=== PATIENT | male | born 1945 | race Caucasian/White ===

== ENCOUNTER 2018-08-10 10:13 | Inpatient (IN) | payer MEDICAID ==
[2018-08-10 11:13] LABS: ADD MAN DIFF? NO
[2018-08-10 11:14] LABS: WHITE BLOOD COUNT 5.9 10^3/ul (4.8-10.8)
[2018-08-10 11:14] LABS: BASOPHIL # 0.1 10^3/ul (0.0-0.1); BASOPHILS % 0.8 % (0.0-2.0); EOSINOPHILS # 0.6 10^3/ul (0.0-0.5); EOSINOPHILS % 9.8 % (0.0-7.0); HEMATOCRIT 34.5 % (42.0-52.0); HEMOGLOBIN 10.6 g/dl (14.0-18.0); LYMPHOCYTES # 1.5 10^3/ul (0.8-2.9); LYMPHOCYTES % 24.6 % (15.0-51.0); MEAN CORPUSCULAR HEMOGLOBIN 18.8 pg (29.0-33.0); MEAN CORPUSCULAR HGB CONC 30.7 g/dl (32.0-37.0); MEAN CORPUSCULAR VOLUME 61.2 fl (82.0-101.0); MEAN PLATELET VOLUME 10.3 fl (7.4-10.4); MONOCYTES % 17.5 % (0.0-11.0); NEUTROPHIL # 2.8 10^3/ul (1.6-7.5); NEUTROPHILS % 46.8 % (39.0-77.0); PLATELET COUNT 322 10^3/UL (140-415); RED BLOOD COUNT 5.64 10^6/ul (4.70-6.10); RED CELL DISTRIBUTION WIDTH 16.2 % (11.5-14.5)
[2018-08-10] MEDS: ONDANSETRON 4 MG INJ IV (11:18)
[2018-08-10] MEDS: PIPER-TAZO 3.375 GM IV (PMX) 100 ML IVPB ×3 (11:18→22:00)
[2018-08-10] MEDS: SODIUM CHLORIDE 0.9% 1L BAG IV* (11:18)
[2018-08-10] MEDS: morphine 4 MG/ML VIAL IV (11:24)
[2018-08-10 11:31] LABS: ALANINE AMINOTRANSFERASE 26 IU/L (13-69); ALBUMIN 3.7 g/dl (3.3-4.9); ALBUMIN/GLOBULIN RATIO 1.19; ALKALINE PHOSPHATASE 72 IU/L (42-121); ANION GAP 9 (5-13); ASPARTATE AMINO TRANSFERASE 31 IU/L (15-46); BILIRUBIN,INDIRECT 0.1 mg/dl (0-1.1); BILIRUBIN,TOTAL 0.1 mg/dl (0.2-1.3); BLOOD UREA NITROGEN 22 mg/dl (7-20); CALCIUM 8.3 mg/dl (8.4-10.2); CARBON DIOXIDE 24 mmol/L (21-31); CHLORIDE 105 mmol/L (97-110); CREATININE 1.94 mg/dl (0.61-1.24); GLUCOSE 92 mg/dl (70-220); LIPASE 124 U/L (23-300); POTASSIUM 3.9 mmol/L (3.5-5.1); SODIUM 138 mmol/L (135-144); TOTAL PROTEIN 6.8 g/dl (6.1-8.1)
[2018-08-10 11:34] LABS: PROTIME 13.3 Sec (11.9-14.9)
[2018-08-10 11:36] LABS: ADD UMIC YES; UR ASCORBIC ACID NEGATIVE (NEGATIVE); UR BILIRUBIN (Dip) NEGATIVE (NEGATIVE); UR BLOOD (Dip) NEGATIVE (NEGATIVE); UR CLARITY CLEAR (CLEAR); UR COLOR YELLOW (YELLOW); UR GLUCOSE (Dip) NEGATIVE (NEGATIVE); UR KETONES (Dip) NEGATIVE (NEGATIVE); UR LEUKOCYTE ESTERASE (Dip) NEGATIVE Leu/ul (NEGATIVE); UR NITRITE (Dip) NEGATIVE (NEGATIVE); UR RBC 0 /HPF (0-5); UR SPECIFIC GRAVITY (Dip) 1.012 (1.003-1.030); UR TOTAL PROTEIN (Dip) 2+ mg/dl (NEGATIVE); UR UROBILINOGEN (Dip) NEGATIVE (NEGATIVE); UR WBC 0 /HPF (0-5)
[2018-08-10 11:42] LABS: TROPONIN-I < 0.012 ng/ml (0.000-0.120)
[2018-08-10] MEDS: VANCOMYCIN 1 GM (PMX) 250 ML IVPB (12:22)
[2018-08-10] MEDS ORDERED: ACETAMINOPHEN 325 MG TAB PO ×2 (13:30→17:00)
[2018-08-10] MEDS ORDERED: ONDANSETRON 4 MG INJ IV ×3 (13:30→17:00)
[2018-08-10] MEDS ORDERED: NACL 0.9% 3 ML SYG IV ×2 (15:30→17:00)
[2018-08-10 15:54] LABS: HEMOGLOBIN A1C 5.8 % (0-5.9)
[2018-08-10 16:03] LABS: LACTIC ACID 1.1 mmol/L (0.5-2.0)
[2018-08-10 16:26] LABS: IRON 30 ug/dl (35-150)
[2018-08-10 16:35] LABS: % IRON SATURATION 11 % SAT (22-52); TOTAL IRON BINDING CAPACITY 267 ug/dl (241-421)
[2018-08-10] MEDS: LABETALOL 100 MG TAB PO (16:47)
[2018-08-10] MEDS: SOD CHLORIDE 0.9% 1,000 ML IV (16:51)
[2018-08-10] MEDS ORDERED: HYDROCODONE/APAP (5/325) TAB PO (17:00)
[2018-08-10 17:23] LABS: B-TYPE NATRIURETIC PEPTIDE 184 PG/ML (0-125)
[2018-08-10] MEDS: LIDOCAINE 1% (MPF) 30 ML INJ INJ (18:15)
[2018-08-10] MEDS: HEPARIN 5,000 UNIT/1 ML VIAL SC (21:57)
[2018-08-11] MEDS: SOD CHLORIDE 0.9% 1,000 ML IV ×2 (01:45→11:44)
[2018-08-11] MEDS: HEPARIN 5,000 UNIT/1 ML VIAL SC ×3 (05:21→21:48)
[2018-08-11] MEDS: PIPER-TAZO 3.375 GM IV (PMX) 100 ML IVPB ×3 (05:22→21:28)
[2018-08-11 05:56] LABS: ADD MAN DIFF? NO
[2018-08-11 06:02] LABS: BASOPHIL # 0.1 10^3/ul (0.0-0.1); BASOPHILS % 0.9 % (0.0-2.0); EOSINOPHILS # 0.6 10^3/ul (0.0-0.5); EOSINOPHILS % 10.1 % (0.0-7.0); HEMATOCRIT 30.1 % (42.0-52.0); HEMOGLOBIN 9.3 g/dl (14.0-18.0); LYMPHOCYTES # 1.3 10^3/ul (0.8-2.9); LYMPHOCYTES % 23.4 % (15.0-51.0); MEAN CORPUSCULAR HEMOGLOBIN 18.9 pg (29.0-33.0); MEAN CORPUSCULAR HGB CONC 30.9 g/dl (32.0-37.0); MEAN CORPUSCULAR VOLUME 61.3 fl (82.0-101.0); MONOCYTE # 0.5 10^3/ul (0.3-0.9); MONOCYTES % 9.1 % (0.0-11.0); NEUTROPHIL # 3.2 10^3/ul (1.6-7.5); PLATELET COUNT 304 10^3/UL (140-415); RED BLOOD COUNT 4.91 10^6/ul (4.70-6.10); RED CELL DISTRIBUTION WIDTH 16.6 % (11.5-14.5)
[2018-08-11 06:02] LABS: WHITE BLOOD COUNT 5.7 10^3/ul (4.8-10.8)
[2018-08-11 06:25] LABS: ALANINE AMINOTRANSFERASE 23 IU/L (13-69); ALBUMIN 2.9 g/dl (3.3-4.9); ALBUMIN/GLOBULIN RATIO 1.03; ALKALINE PHOSPHATASE 55 IU/L (42-121); ANION GAP 10 (5-13); ASPARTATE AMINO TRANSFERASE 25 IU/L (15-46); BILIRUBIN,INDIRECT 0.1 mg/dl (0-1.1); BILIRUBIN,TOTAL 0.1 mg/dl (0.2-1.3); BLOOD UREA NITROGEN 19 mg/dl (7-20); CALCIUM 7.4 mg/dl (8.4-10.2); CARBON DIOXIDE 22 mmol/L (21-31); CHLORIDE 110 mmol/L (97-110); CREATININE 1.83 mg/dl (0.61-1.24); GLUCOSE 88 mg/dl (70-220); MAGNESIUM 1.8 mg/dl (1.7-2.5); PHOSPHORUS 4.1 mg/dl (2.5-4.9); POTASSIUM 4.4 mmol/L (3.5-5.1); SODIUM 142 mmol/L (135-144); TOTAL PROTEIN 5.7 g/dl (6.1-8.1)
[2018-08-11 06:42] LABS: HEMOGLOBIN A1C 5.6 % (0-5.9)
[2018-08-11] MEDS ORDERED: ENOXAPARIN 40 MG/0.4 ML SYG SC (09:00)
[2018-08-11] MEDS: LABETALOL 100 MG TAB PO ×2 (11:41→20:05)
[2018-08-11] MEDS: AMLODIPINE 10 MG TAB PO (14:51)
[2018-08-11 17:57] LABS: CREATININE,URINE RANDOM 41.08 mg/dl (20-370)
[2018-08-11 17:57] LABS: SODIUM,URINE RANDOM 129 mmol/L (30-90)
[2018-08-12] MEDS: PIPER-TAZO 3.375 GM IV (PMX) 100 ML IVPB ×3 (05:06→21:50)
[2018-08-12] MEDS: HEPARIN 5,000 UNIT/1 ML VIAL SC ×2 (05:12→15:05)
[2018-08-12 05:26] LABS: ADD MAN DIFF? NO
[2018-08-12 05:30] LABS: BASOPHIL # 0.1 10^3/ul (0.0-0.1); BASOPHILS % 1.2 % (0.0-2.0); EOSINOPHILS # 0.7 10^3/ul (0.0-0.5); EOSINOPHILS % 12.1 % (0.0-7.0); HEMATOCRIT 29.7 % (42.0-52.0); HEMOGLOBIN 9.2 g/dl (14.0-18.0); LYMPHOCYTES # 1.4 10^3/ul (0.8-2.9); LYMPHOCYTES % 23.2 % (15.0-51.0); MEAN CORPUSCULAR HEMOGLOBIN 18.8 pg (29.0-33.0); MEAN CORPUSCULAR VOLUME 60.6 fl (82.0-101.0); MEAN PLATELET VOLUME 10.5 fl (7.4-10.4); MONOCYTE # 0.5 10^3/ul (0.3-0.9); MONOCYTES % 7.8 % (0.0-11.0); NEUTROPHIL # 3.4 10^3/ul (1.6-7.5); NEUTROPHILS % 55.4 % (39.0-77.0); PLATELET COUNT 309 10^3/UL (140-415); RED CELL DISTRIBUTION WIDTH 16.7 % (11.5-14.5)
[2018-08-12 05:55] LABS: ALANINE AMINOTRANSFERASE 26 IU/L (13-69); ALBUMIN/GLOBULIN RATIO 1.11; ALKALINE PHOSPHATASE 60 IU/L (42-121); ANION GAP 8 (5-13); ASPARTATE AMINO TRANSFERASE 26 IU/L (15-46); BILIRUBIN,INDIRECT 0.2 mg/dl (0-1.1); BILIRUBIN,TOTAL 0.2 mg/dl (0.2-1.3); BLOOD UREA NITROGEN 14 mg/dl (7-20); CALCIUM 7.8 mg/dl (8.4-10.2); CARBON DIOXIDE 22 mmol/L (21-31); CHLORIDE 111 mmol/L (97-110); CREATININE 1.83 mg/dl (0.61-1.24); GLUCOSE 88 mg/dl (70-220); POTASSIUM 4.2 mmol/L (3.5-5.1); SODIUM 141 mmol/L (135-144); TOTAL PROTEIN 5.7 g/dl (6.1-8.1)
[2018-08-12 05:56] LABS: MAGNESIUM 1.8 mg/dl (1.7-2.5)
[2018-08-12 05:56] LABS: PHOSPHORUS 3.9 mg/dl (2.5-4.9)
[2018-08-12] MEDS: AMLODIPINE 10 MG TAB PO (08:17)
[2018-08-12] MEDS: LABETALOL 100 MG TAB PO ×2 (08:18→20:15)
[2018-08-12] MEDS ORDERED: LOPERAMIDE 2 MG CAP PO (12:00)
[2018-08-12 15:31] LABS: CREATININE, RANDOM URINE 42 mg/dL (20-320); MICROALBUMIN 10.1 mg/dL; MICROALBUMIN/CREATININE RATIO 240 (<30)
[2018-08-12] MEDS: SODIUM HYPOCHLORITE (1/40) 1 APPLIC BTL IRR (20:13)
[2018-08-12] MEDS: MUPIROCIN 2% 22 GM OINT TOP (20:16)
[2018-08-12] MEDS: ACETAMINOPHEN 325 MG TAB PO (22:50)
[2018-08-13] MEDS: PIPER-TAZO 3.375 GM IV (PMX) 100 ML IVPB (05:42)
[2018-08-13 06:06] LABS: ADD MAN DIFF? NO
[2018-08-13 06:17] LABS: BASOPHIL # 0.1 10^3/ul (0.0-0.1); BASOPHILS % 1.2 % (0.0-2.0); EOSINOPHILS # 0.5 10^3/ul (0.0-0.5); EOSINOPHILS % 10.4 % (0.0-7.0); HEMATOCRIT 30.8 % (42.0-52.0); HEMOGLOBIN 9.6 g/dl (14.0-18.0); LYMPHOCYTES # 1.3 10^3/ul (0.8-2.9); LYMPHOCYTES % 25.7 % (15.0-51.0); MEAN CORPUSCULAR HEMOGLOBIN 18.9 pg (29.0-33.0); MEAN CORPUSCULAR HGB CONC 31.2 g/dl (32.0-37.0); MEAN CORPUSCULAR VOLUME 60.7 fl (82.0-101.0); MEAN PLATELET VOLUME 10.3 fl (7.4-10.4); MONOCYTE # 0.5 10^3/ul (0.3-0.9); NEUTROPHIL # 2.7 10^3/ul (1.6-7.5); NEUTROPHILS % 53.5 % (39.0-77.0); PLATELET COUNT 321 10^3/UL (140-415); RED BLOOD COUNT 5.07 10^6/ul (4.70-6.10); RED CELL DISTRIBUTION WIDTH 16.6 % (11.5-14.5)
[2018-08-13 06:58] LABS: ALANINE AMINOTRANSFERASE 24 IU/L (13-69); ALBUMIN 3.2 g/dl (3.3-4.9); ALBUMIN/GLOBULIN RATIO 1.14; ALKALINE PHOSPHATASE 60 IU/L (42-121); ANION GAP 8 (5-13); ASPARTATE AMINO TRANSFERASE 27 IU/L (15-46); BILIRUBIN,INDIRECT 0.4 mg/dl (0-1.1); BILIRUBIN,TOTAL 0.4 mg/dl (0.2-1.3); BLOOD UREA NITROGEN 11 mg/dl (7-20); CALCIUM 8.1 mg/dl (8.4-10.2); CARBON DIOXIDE 22 mmol/L (21-31); CHLORIDE 109 mmol/L (97-110); CREATININE 1.76 mg/dl (0.61-1.24); GLUCOSE 94 mg/dl (70-220); POTASSIUM 4.3 mmol/L (3.5-5.1); SODIUM 139 mmol/L (135-144)
[2018-08-13] MEDS: ACETAMINOPHEN 325 MG TAB PO (09:29)
[2018-08-13] MEDS: AMLODIPINE 10 MG TAB PO (09:30)
[2018-08-13] MEDS: SODIUM HYPOCHLORITE (1/40) 1 APPLIC BTL IRR (09:30)
[2018-08-13] MEDS: LABETALOL 100 MG TAB PO (09:30)
[2018-08-13] MEDS: MUPIROCIN 2% 22 GM OINT TOP (09:30)
[2018-08-13] MEDS: HYDROCODONE/APAP (5/325) TAB PO (12:04)
== END 2018-08-13 13:40 | disposition home or self-care (01) | DRG 854 ==
LOC: E/R 10:13 → 2NE 13:07
PROVIDERS: Internal Medicine
PROC: 0J9Q0ZZ Drainage of Right Foot Subcutaneous Tissue and Fascia, Open Approach (ICD-10-PCS; principal; 2018-08-10)
DX: A41.9 Sepsis, unspecified organism (principal); L03.115 Cellulitis of right lower limb; N17.9 Acute kidney failure, unspecified; I13.0 Hypertensive heart and chronic kidney disease with heart failure and stage 1 through stage 4 chronic kidney disease, or unspecified chronic kidney disease; N13.2 Hydronephrosis with renal and ureteral calculous obstruction; L02.611 Cutaneous abscess of right foot; N18.9 Chronic kidney disease, unspecified; I50.9 Heart failure, unspecified; L97.509 Non-pressure chronic ulcer of other part of unspecified foot with unspecified severity; B95.62 Methicillin resistant Staphylococcus aureus infection as the cause of diseases classified elsewhere
CPT/HCPCS: 36415; 71045; 73630; 74176; 76775; 80053; 81001; 81003; 82043; 82728; 83036; 83540; 83605; 83690; 83735; 83880; 84100; 84155; 84300; 84484; 85025; 85610; 85730; 87040; 87070; 87086; 90686; 93005; 93306; 96365; 96366; 96375; 99285-25